=== PATIENT | male | born 1985 | race Caucasian/White ===

== ENCOUNTER 2023-01-10 17:49 | Inpatient (IN) | payer OTHER ==
[2023-01-10 18:29] VITALS: BMI 24.4
[2023-01-10] MEDS ORDERED: hydrOXYzine PAMOATE 25 MG CAPSULE (FP) PO PRN (20:30)
[2023-01-10] MEDS ORDERED: BENZONATATE 200 MG CAPSULE PO PRN (20:30)
[2023-01-10] MEDS ORDERED: AMMONIUM LACTATE 12% LOTION 225 GM BOTTLE TP PRN (20:30)
[2023-01-10] MEDS ORDERED: BENZOCAINE/MENTHOL (CHLORASEPTIC ) LOZENGE MM PRN (20:30)
[2023-01-10] MEDS ORDERED: IBUPROFEN 600 MG TABLET (FP) PO PRN (20:30)
[2023-01-10] MEDS ORDERED: NALOXONE HCL 0.4 MG/ML VIAL IM PRN (20:30)
[2023-01-10] MEDS ORDERED: POLYETHYLENE GLYCOL (HEALTHYLAX) 3350 17 GM PACKET PO PRN (20:30)
[2023-01-10] MEDS ORDERED: LOPERAMIDE HCL 2 MG CAPSULE PO PRN (20:30)
[2023-01-10] MEDS ORDERED: NALOXONE HCL (KLOXXADO) 8 MG SPRAY NS PRN (20:30)
[2023-01-10] MEDS ORDERED: ACETAMINOPHEN 325 MG TABLET (FP) PO PRN (20:30)
[2023-01-10] MEDS ORDERED: MAGNESIUM HYDROX 2400MG/30ML ORAL SUSPENSION 30 ML CUP PO PRN (20:30)
[2023-01-10] MEDS ORDERED: IBUPROFEN 400 MG TABLET (FP) PO PRN (20:30)
[2023-01-10] MEDS ORDERED: guaiFENesin 600 MG TABLET.ER (FP) PO PRN (20:30)
[2023-01-10] MEDS ORDERED: TUBERCULIN PPD 5 TU/0.1ML SYRINGE (IN PATIENT USE ONLY) ID ONE (22:30)
[2023-01-10] MEDS ORDERED: TUBERCULIN PPD 5 TU/0.1ML VIAL ID ONE (22:35)
[2023-01-10] MEDS: THIAMINE HCL 100 MG TABLET (FP) PO SCH (22:40)
[2023-01-10] MEDS: MELATONIN 5 MG TABLETS PO SCH (22:43)
[2023-01-11] MEDS ORDERED: methaDONE HCL 10 MG TABLET PO SCH (07:38)
[2023-01-11] MEDS: methaDONE 40 MG, methaDONE 10 MG PO SCH (08:26)
[2023-01-11] MEDS: NICOTINE 14 MG/24 HOURS TOPICAL PATCH TD SCH (10:32)
[2023-01-11] MEDS: PRENATAL VITAMINS W/ FOLIC ACID TABLET (FP) PO SCH (10:32)
[2023-01-11 11:46] LABS: HEMATOCRIT 40.5 % (35.4-49); HEMOGLOBIN 13.6 GM/dL (11.7-16.9); MCH 29.2 pg (25.7-33.7); MCHC 33.6 g/dl (32.0-35.9); MEAN PLT VOLUME 8.4 fl (7.5-11.1); PLATELET COUNT 209 10^3/uL (134-434); POTASSIUM 4.3 mmol/L (3.5-5.1); RBC 4.66 M/mm3 (4.00-5.60); WHITE BLOOD COUNT 6.2 K/mm3 (4.0-10.0)
[2023-01-11 11:48] LABS: BLOOD UREA NITROGEN 16.4 mg/dL (7-18); CALCIUM 9.2 mg/dL (8.5-10.1)
[2023-01-11 11:49] LABS: ALBUMIN 3.9 g/dl (3.4-5.0)
[2023-01-11 11:52] LABS: CREATININE 0.8 mg/dL (0.55-1.3)
[2023-01-11 11:53] LABS: BILIRUBIN,TOTAL 0.5 mg/dL (0.2-1); TOT PROT 7.2 g/dl (6.4-8.2)
[2023-01-11 12:13] LABS: SYPHILIS W/ RPR CONF NON-REACTIVE (NONREACTIVE)
[2023-01-11] MEDS: GABAPENTIN 300 MG CAPSULE PO SCH ×2 (13:04→21:27)
[2023-01-11] MEDS: THIAMINE HCL 100 MG TABLET (FP) PO SCH (21:27)
[2023-01-11] MEDS: MIRTAZAPINE 15 MG TABLET (FP) PO SCH (21:28)
[2023-01-11] MEDS: MELATONIN 5 MG TABLETS PO SCH (21:28)
[2023-01-12] MEDS: methaDONE 40 MG, methaDONE 10 MG PO SCH (06:42)
[2023-01-12] MEDS: GABAPENTIN 300 MG CAPSULE PO SCH ×3 (06:56→21:39)
[2023-01-12] MEDS: PRENATAL VITAMINS W/ FOLIC ACID TABLET (FP) PO SCH (09:41)
[2023-01-12] MEDS: NICOTINE 14 MG/24 HOURS TOPICAL PATCH TD SCH (09:45)
[2023-01-12 09:50] LABS: URINE APPEARANCE CLEAR; URINE BILIRUBIN NEGATIVE (NEGATIVE); URINE COLOR YELLOW; URINE GLUCOSE (UA) NEGATIVE (NEGATIVE); URINE KETONE NEGATIVE (NEGATIVE); URINE LEUK ESTERASE NEGATIVE (NEGATIVE); URINE NITRITE NEGATIVE (NEGATIVE); URINE PROTEIN NEGATIVE (NEGATIVE); URINE UROBILINOGEN 0.2 mg/dL (0.2-1.0)
[2023-01-12] MEDS: THIAMINE HCL 100 MG TABLET (FP) PO SCH (21:39)
[2023-01-12] MEDS: MELATONIN 5 MG TABLETS PO SCH (21:39)
[2023-01-12] MEDS: MIRTAZAPINE 15 MG TABLET (FP) PO SCH (21:40)
[2023-01-13] MEDS: methaDONE 40 MG, methaDONE 10 MG PO SCH (06:36)
[2023-01-13] MEDS: GABAPENTIN 300 MG CAPSULE PO SCH ×3 (06:36→21:06)
[2023-01-13] MEDS: NICOTINE 14 MG/24 HOURS TOPICAL PATCH TD SCH (10:24)
[2023-01-13] MEDS: PRENATAL VITAMINS W/ FOLIC ACID TABLET (FP) PO SCH (10:25)
[2023-01-13] MEDS: NICOTINE POLACRILEX 2 MG GUM BUC PRN (10:25)
[2023-01-13] MEDS: THIAMINE HCL 100 MG TABLET (FP) PO SCH (21:06)
[2023-01-13] MEDS: MELATONIN 5 MG TABLETS PO SCH (21:06)
[2023-01-13] MEDS: MIRTAZAPINE 15 MG TABLET (FP) PO SCH (21:06)
[2023-01-14] MEDS: methaDONE 40 MG, methaDONE 10 MG PO SCH (06:25)
[2023-01-14] MEDS: GABAPENTIN 300 MG CAPSULE PO SCH ×3 (06:25→21:04)
[2023-01-14] MEDS: NICOTINE 14 MG/24 HOURS TOPICAL PATCH TD SCH (09:35)
[2023-01-14] MEDS: PRENATAL VITAMINS W/ FOLIC ACID TABLET (FP) PO SCH (09:57)
[2023-01-14] MEDS: MIRTAZAPINE 15 MG TABLET (FP) PO SCH (21:05)
[2023-01-14] MEDS: MELATONIN 5 MG TABLETS PO SCH (21:05)
[2023-01-14] MEDS: THIAMINE HCL 100 MG TABLET (FP) PO SCH (21:05)
[2023-01-15] MEDS: GABAPENTIN 300 MG CAPSULE PO SCH ×3 (06:14→21:26)
[2023-01-15] MEDS: methaDONE 40 MG, methaDONE 10 MG PO SCH (06:14)
[2023-01-15] MEDS ORDERED: LORATADINE 10 MG TABLET PO ONE (09:40)
[2023-01-15] MEDS ORDERED: LORATADINE 10 MG TABLET PO PRN (09:41)
[2023-01-15] MEDS: NICOTINE 21 MG/24 HOURS TOPICAL PATCH TD SCH (09:45)
[2023-01-15] MEDS: PRENATAL VITAMINS W/ FOLIC ACID TABLET (FP) PO SCH (09:46)
[2023-01-15] MEDS: THIAMINE HCL 100 MG TABLET (FP) PO SCH (21:26)
[2023-01-15] MEDS: MIRTAZAPINE 15 MG TABLET (FP) PO SCH (21:26)
[2023-01-15] MEDS: SUVOREXANT 10 MG TABLET PO PRN (21:27)
[2023-01-15] MEDS: TOLNAFTATE 1% CREAM 15 GM TUBE TP SCH (21:27)
[2023-01-16] MEDS: GABAPENTIN 300 MG CAPSULE PO SCH ×3 (06:24→21:06)
[2023-01-16] MEDS: methaDONE 40 MG, methaDONE 10 MG PO SCH (06:24)
[2023-01-16] MEDS: NICOTINE 21 MG/24 HOURS TOPICAL PATCH TD SCH (10:28)
[2023-01-16] MEDS: PRENATAL VITAMINS W/ FOLIC ACID TABLET (FP) PO SCH (10:28)
[2023-01-16] MEDS: TOLNAFTATE 1% CREAM 15 GM TUBE TP SCH ×2 (10:30→21:37)
[2023-01-16] MEDS ORDERED: LORATADINE 10 MG TABLET PO PRN (11:39)
[2023-01-16] MEDS: THIAMINE HCL 100 MG TABLET (FP) PO SCH (21:06)
[2023-01-16] MEDS: MIRTAZAPINE 15 MG TABLET (FP) PO SCH (21:06)
[2023-01-16] MEDS: SUVOREXANT 10 MG TABLET PO PRN (21:06)
[2023-01-17] MEDS: GABAPENTIN 300 MG CAPSULE PO SCH ×3 (06:30→21:29)
[2023-01-17] MEDS: methaDONE 40 MG, methaDONE 10 MG PO SCH (06:30)
[2023-01-17] MEDS: NICOTINE 21 MG/24 HOURS TOPICAL PATCH TD SCH (09:41)
[2023-01-17] MEDS: TOLNAFTATE 1% CREAM 15 GM TUBE TP SCH ×2 (09:42→21:30)
[2023-01-17] MEDS: PRENATAL VITAMINS W/ FOLIC ACID TABLET (FP) PO SCH (09:42)
[2023-01-17] MEDS: THIAMINE HCL 100 MG TABLET (FP) PO SCH (21:28)
[2023-01-17] MEDS: SUVOREXANT 10 MG TABLET PO PRN (21:28)
[2023-01-17] MEDS: MIRTAZAPINE 15 MG TABLET (FP) PO SCH (21:29)
[2023-01-18] MEDS: GABAPENTIN 300 MG CAPSULE PO SCH ×3 (06:32→21:34)
[2023-01-18] MEDS: methaDONE 40 MG, methaDONE 10 MG PO SCH (06:32)
[2023-01-18] MEDS: PRENATAL VITAMINS W/ FOLIC ACID TABLET (FP) PO SCH (10:45)
[2023-01-18] MEDS: NICOTINE 21 MG/24 HOURS TOPICAL PATCH TD SCH (10:45)
[2023-01-18] MEDS: TOLNAFTATE 1% CREAM 15 GM TUBE TP SCH ×2 (10:45→21:33)
[2023-01-18] MEDS: MIRTAZAPINE 15 MG TABLET (FP) PO SCH (21:34)
[2023-01-18] MEDS: THIAMINE HCL 100 MG TABLET (FP) PO SCH (21:34)
[2023-01-18] MEDS: SUVOREXANT 10 MG TABLET PO PRN (21:35)
[2023-01-19] MEDS: methaDONE 40 MG, methaDONE 10 MG PO SCH (06:38)
[2023-01-19] MEDS: GABAPENTIN 300 MG CAPSULE PO SCH ×3 (06:38→21:27)
[2023-01-19] MEDS: TOLNAFTATE 1% CREAM 15 GM TUBE TP SCH ×2 (09:38→21:27)
[2023-01-19] MEDS: NICOTINE 21 MG/24 HOURS TOPICAL PATCH TD SCH (09:38)
[2023-01-19] MEDS: PRENATAL VITAMINS W/ FOLIC ACID TABLET (FP) PO SCH (09:38)
[2023-01-19] MEDS: THIAMINE HCL 100 MG TABLET (FP) PO SCH (21:27)
[2023-01-19] MEDS: MIRTAZAPINE 15 MG TABLET (FP) PO SCH (21:27)
[2023-01-19] MEDS: SUVOREXANT 10 MG TABLET PO PRN (21:28)
[2023-01-20] MEDS: methaDONE 40 MG, methaDONE 10 MG PO SCH (06:23)
[2023-01-20] MEDS: GABAPENTIN 300 MG CAPSULE PO SCH ×3 (06:23→21:21)
[2023-01-20] MEDS: PRENATAL VITAMINS W/ FOLIC ACID TABLET (FP) PO SCH (09:57)
[2023-01-20] MEDS: NICOTINE 21 MG/24 HOURS TOPICAL PATCH TD SCH (09:59)
[2023-01-20] MEDS: TOLNAFTATE 1% CREAM 15 GM TUBE TP SCH ×2 (10:00→21:22)
[2023-01-20] MEDS: THIAMINE HCL 100 MG TABLET (FP) PO SCH (21:21)
[2023-01-20] MEDS: MIRTAZAPINE 15 MG TABLET (FP) PO SCH (21:21)
[2023-01-20] MEDS: SUVOREXANT 10 MG TABLET PO PRN (21:22)
[2023-01-21] MEDS: methaDONE 40 MG, methaDONE 10 MG PO SCH (06:40)
[2023-01-21] MEDS: GABAPENTIN 300 MG CAPSULE PO SCH ×3 (06:40→21:22)
[2023-01-21] MEDS: PRENATAL VITAMINS W/ FOLIC ACID TABLET (FP) PO SCH (10:38)
[2023-01-21] MEDS: NICOTINE 21 MG/24 HOURS TOPICAL PATCH TD SCH (10:39)
[2023-01-21] MEDS: TOLNAFTATE 1% CREAM 15 GM TUBE TP SCH ×2 (10:40→21:24)
[2023-01-21] MEDS: MIRTAZAPINE 15 MG TABLET (FP) PO SCH (21:22)
[2023-01-21] MEDS: THIAMINE HCL 100 MG TABLET (FP) PO SCH (21:22)
[2023-01-21] MEDS: SUVOREXANT 10 MG TABLET PO PRN (21:23)
[2023-01-21] MEDS: LIDOCAINE PATCH REMOVAL MC SCH (21:24)
[2023-01-22] MEDS: methaDONE 40 MG, methaDONE 10 MG PO SCH (06:48)
[2023-01-22] MEDS: GABAPENTIN 300 MG CAPSULE PO SCH ×3 (06:48→21:26)
[2023-01-22] MEDS: MAG HYDROX/AL HYDROX/SIMETH 30 ML UNIT-DOSE CUP PO PRN (09:33)
[2023-01-22] MEDS: NICOTINE 21 MG/24 HOURS TOPICAL PATCH TD SCH (09:33)
[2023-01-22] MEDS: LIDOCAINE 5% TOPICAL PATCH TP SCH (09:33)
[2023-01-22] MEDS: TOLNAFTATE 1% CREAM 15 GM TUBE TP SCH ×2 (09:34→21:28)
[2023-01-22] MEDS: MAGNESIUM HYDROX 2400MG/30ML ORAL SUSPENSION 30 ML CUP PO SCH (09:34)
[2023-01-22] MEDS: PRENATAL VITAMINS W/ FOLIC ACID TABLET (FP) PO SCH (09:34)
[2023-01-22] MEDS: BACLOFEN 10 MG TABLET (FP) PO PRN (14:29)
[2023-01-22] MEDS: THIAMINE HCL 100 MG TABLET (FP) PO SCH (21:26)
[2023-01-22] MEDS: MIRTAZAPINE 15 MG TABLET (FP) PO SCH (21:26)
[2023-01-22] MEDS: SENNOSIDES 8.6MG TABLET (FP) PO SCH (21:27)
[2023-01-22] MEDS: SUVOREXANT 10 MG TABLET PO PRN (21:27)
[2023-01-22] MEDS: LIDOCAINE PATCH REMOVAL MC SCH (21:28)
[2023-01-23] MEDS: methaDONE 40 MG, methaDONE 10 MG PO SCH (06:28)
[2023-01-23] MEDS: GABAPENTIN 300 MG CAPSULE PO SCH ×3 (06:28→21:08)
[2023-01-23] MEDS: NICOTINE POLACRILEX 2 MG GUM BUC PRN (06:31)
[2023-01-23] MEDS: PRENATAL VITAMINS W/ FOLIC ACID TABLET (FP) PO SCH (09:24)
[2023-01-23] MEDS: LIDOCAINE 5% TOPICAL PATCH TP SCH (09:25)
[2023-01-23] MEDS: MAGNESIUM HYDROX 2400MG/30ML ORAL SUSPENSION 30 ML CUP PO SCH (09:26)
[2023-01-23] MEDS: NICOTINE 21 MG/24 HOURS TOPICAL PATCH TD SCH (09:26)
[2023-01-23] MEDS: TOLNAFTATE 1% CREAM 15 GM TUBE TP SCH ×2 (09:26→21:09)
[2023-01-23] MEDS: BACLOFEN 10 MG TABLET (FP) PO PRN (16:44)
[2023-01-23] MEDS: THIAMINE HCL 100 MG TABLET (FP) PO SCH (21:07)
[2023-01-23] MEDS: SUVOREXANT 10 MG TABLET PO PRN (21:08)
[2023-01-23] MEDS: SENNOSIDES 8.6MG TABLET (FP) PO SCH (21:08)
[2023-01-23] MEDS: MIRTAZAPINE 15 MG TABLET (FP) PO SCH (21:08)
[2023-01-23] MEDS: LIDOCAINE PATCH REMOVAL MC SCH (21:09)
[2023-01-24] MEDS: GABAPENTIN 300 MG CAPSULE PO SCH ×3 (06:27→21:06)
[2023-01-24] MEDS: methaDONE 40 MG, methaDONE 10 MG PO SCH (06:27)
[2023-01-24] MEDS: BACLOFEN 10 MG TABLET (FP) PO PRN (09:36)
[2023-01-24] MEDS: NICOTINE 21 MG/24 HOURS TOPICAL PATCH TD SCH (09:36)
[2023-01-24] MEDS: LIDOCAINE 5% TOPICAL PATCH TP SCH (10:44)
[2023-01-24] MEDS: PRENATAL VITAMINS W/ FOLIC ACID TABLET (FP) PO SCH (10:45)
[2023-01-24] MEDS: MAGNESIUM HYDROX 2400MG/30ML ORAL SUSPENSION 30 ML CUP PO SCH ×2 (10:45→13:55)
[2023-01-24] MEDS: TOLNAFTATE 1% CREAM 15 GM TUBE TP SCH ×2 (13:55→21:07)
[2023-01-24] MEDS: THIAMINE HCL 100 MG TABLET (FP) PO SCH (21:05)
[2023-01-24] MEDS: SUVOREXANT 10 MG TABLET PO PRN (21:06)
[2023-01-24] MEDS: MIRTAZAPINE 15 MG TABLET (FP) PO SCH (21:06)
[2023-01-24] MEDS: LIDOCAINE PATCH REMOVAL MC SCH (21:07)
[2023-01-24] MEDS: SENNOSIDES 8.6MG TABLET (FP) PO SCH (21:07)
[2023-01-25] MEDS ORDERED: methaDONE HCL 40 MG DISPERSABLE TABLET PO SCH (06:00)
[2023-01-25] MEDS: methaDONE 40 MG, methaDONE 10 MG PO SCH (06:32)
[2023-01-25] MEDS: BACLOFEN 10 MG TABLET (FP) PO PRN (06:36)
[2023-01-25] MEDS: GABAPENTIN 300 MG CAPSULE PO SCH ×2 (09:26→21:02)
[2023-01-25] MEDS: LIDOCAINE 5% TOPICAL PATCH TP SCH (09:26)
[2023-01-25] MEDS: NICOTINE 21 MG/24 HOURS TOPICAL PATCH TD SCH (09:26)
[2023-01-25] MEDS: MAGNESIUM HYDROX 2400MG/30ML ORAL SUSPENSION 30 ML CUP PO SCH (09:26)
[2023-01-25] MEDS: PRENATAL VITAMINS W/ FOLIC ACID TABLET (FP) PO SCH (09:26)
[2023-01-25] MEDS: TOLNAFTATE 1% CREAM 15 GM TUBE TP SCH ×2 (09:27→21:03)
[2023-01-25] MEDS: NICOTINE 10 MG CARTRIDGE (INHALER) IH PRN (11:25)
[2023-01-25] MEDS: COLLOIDAL OATMEAL 1 BAR EACH TP PRN (12:14)
[2023-01-25] MEDS: SUVOREXANT 10 MG TABLET PO PRN (21:01)
[2023-01-25] MEDS: MIRTAZAPINE 15 MG TABLET (FP) PO SCH (21:02)
[2023-01-25] MEDS: THIAMINE HCL 100 MG TABLET (FP) PO SCH (21:02)
[2023-01-25] MEDS: SENNOSIDES 8.6MG TABLET (FP) PO SCH (21:02)
[2023-01-25] MEDS: LIDOCAINE PATCH REMOVAL MC SCH (21:55)
[2023-01-26] MEDS: methaDONE 40 MG, methaDONE 10 MG PO SCH (06:28)
[2023-01-26] MEDS: NICOTINE 10 MG CARTRIDGE (INHALER) IH PRN ×3 (06:29→21:12)
[2023-01-26] MEDS: PRENATAL VITAMINS W/ FOLIC ACID TABLET (FP) PO SCH (10:02)
[2023-01-26] MEDS: GABAPENTIN 300 MG CAPSULE PO SCH ×2 (10:03→21:11)
[2023-01-26] MEDS: MAGNESIUM HYDROX 2400MG/30ML ORAL SUSPENSION 30 ML CUP PO SCH (10:05)
[2023-01-26] MEDS: LIDOCAINE 5% TOPICAL PATCH TP SCH (10:05)
[2023-01-26] MEDS: TOLNAFTATE 1% CREAM 15 GM TUBE TP SCH ×2 (10:06→21:12)
[2023-01-26] MEDS: NICOTINE 21 MG/24 HOURS TOPICAL PATCH TD SCH (10:06)
[2023-01-26] MEDS: SUVOREXANT 10 MG TABLET PO PRN (21:10)
[2023-01-26] MEDS: SENNOSIDES 8.6MG TABLET (FP) PO SCH (21:11)
[2023-01-26] MEDS: MIRTAZAPINE 15 MG TABLET (FP) PO SCH (21:11)
[2023-01-26] MEDS: THIAMINE HCL 100 MG TABLET (FP) PO SCH (21:12)
[2023-01-26] MEDS: LIDOCAINE PATCH REMOVAL MC SCH (21:12)
[2023-01-27] MEDS: methaDONE 40 MG, methaDONE 10 MG PO SCH (06:01)
[2023-01-27] MEDS: LIDOCAINE 5% TOPICAL PATCH TP SCH (09:27)
[2023-01-27] MEDS: GABAPENTIN 300 MG CAPSULE PO SCH ×2 (09:28→21:14)
[2023-01-27] MEDS: MAGNESIUM HYDROX 2400MG/30ML ORAL SUSPENSION 30 ML CUP PO SCH (09:28)
[2023-01-27] MEDS: PRENATAL VITAMINS W/ FOLIC ACID TABLET (FP) PO SCH (09:29)
[2023-01-27] MEDS: NICOTINE 21 MG/24 HOURS TOPICAL PATCH TD SCH (09:29)
[2023-01-27] MEDS: TOLNAFTATE 1% CREAM 15 GM TUBE TP SCH ×2 (09:29→21:15)
[2023-01-27] MEDS: NICOTINE 10 MG CARTRIDGE (INHALER) IH PRN ×2 (09:30→21:15)
[2023-01-27] MEDS: SUVOREXANT 10 MG TABLET PO PRN (21:14)
[2023-01-27] MEDS: SENNOSIDES 8.6MG TABLET (FP) PO SCH (21:14)
[2023-01-27] MEDS: MIRTAZAPINE 15 MG TABLET (FP) PO SCH (21:14)
[2023-01-27] MEDS: THIAMINE HCL 100 MG TABLET (FP) PO SCH (21:15)
[2023-01-27] MEDS: LIDOCAINE PATCH REMOVAL MC SCH (21:15)
[2023-01-27] MEDS: BACLOFEN 10 MG TABLET (FP) PO PRN (21:16)
[2023-01-28] MEDS: methaDONE 40 MG, methaDONE 10 MG PO SCH (06:05)
[2023-01-28] MEDS: PRENATAL VITAMINS W/ FOLIC ACID TABLET (FP) PO SCH (10:18)
[2023-01-28] MEDS: GABAPENTIN 300 MG CAPSULE PO SCH ×3 (10:18→21:09)
[2023-01-28] MEDS: LIDOCAINE 5% TOPICAL PATCH TP SCH (10:18)
[2023-01-28] MEDS: MAGNESIUM HYDROX 2400MG/30ML ORAL SUSPENSION 30 ML CUP PO SCH (10:18)
[2023-01-28] MEDS: NICOTINE 21 MG/24 HOURS TOPICAL PATCH TD SCH (10:19)
[2023-01-28] MEDS: TOLNAFTATE 1% CREAM 15 GM TUBE TP SCH ×2 (10:19→21:10)
[2023-01-28] MEDS ORDERED: GABAPENTIN 300 MG CAPSULE PO SCH (13:15)
[2023-01-28] MEDS: NICOTINE 10 MG CARTRIDGE (INHALER) IH PRN ×3 (14:19→21:10)
[2023-01-28] MEDS: BACLOFEN 10 MG TABLET (FP) PO PRN (14:19)
[2023-01-28] MEDS: SUVOREXANT 10 MG TABLET PO PRN (21:09)
[2023-01-28] MEDS: SENNOSIDES 8.6MG TABLET (FP) PO SCH (21:10)
[2023-01-28] MEDS: THIAMINE HCL 100 MG TABLET (FP) PO SCH (21:10)
[2023-01-28] MEDS: MIRTAZAPINE 15 MG TABLET (FP) PO SCH (21:10)
[2023-01-28] MEDS: LIDOCAINE PATCH REMOVAL MC SCH (21:55)
[2023-01-29] MEDS: GABAPENTIN 300 MG CAPSULE PO SCH ×3 (06:16→21:04)
[2023-01-29] MEDS: methaDONE 40 MG, methaDONE 10 MG PO SCH (06:16)
[2023-01-29] MEDS: MAGNESIUM HYDROX 2400MG/30ML ORAL SUSPENSION 30 ML CUP PO SCH (09:33)
[2023-01-29] MEDS: PRENATAL VITAMINS W/ FOLIC ACID TABLET (FP) PO SCH (09:35)
[2023-01-29] MEDS: TOLNAFTATE 1% CREAM 15 GM TUBE TP SCH ×2 (09:35→21:05)
[2023-01-29] MEDS: NICOTINE 21 MG/24 HOURS TOPICAL PATCH TD SCH (09:35)
[2023-01-29] MEDS: LIDOCAINE 5% TOPICAL PATCH TP SCH (09:35)
[2023-01-29] MEDS: COLLOIDAL OATMEAL 1 BAR EACH TP PRN (09:36)
[2023-01-29] MEDS: NICOTINE 10 MG CARTRIDGE (INHALER) IH PRN ×2 (10:20→14:00)
[2023-01-29] MEDS: BACLOFEN 10 MG TABLET (FP) PO PRN (14:00)
[2023-01-29] MEDS: THIAMINE HCL 100 MG TABLET (FP) PO SCH (21:03)
[2023-01-29] MEDS: SENNOSIDES 8.6MG TABLET (FP) PO SCH (21:04)
[2023-01-29] MEDS: MIRTAZAPINE 15 MG TABLET (FP) PO SCH (21:04)
[2023-01-29] MEDS: SUVOREXANT 10 MG TABLET PO PRN (21:05)
[2023-01-29] MEDS: LIDOCAINE PATCH REMOVAL MC SCH (21:05)
[2023-01-30] MEDS: GABAPENTIN 300 MG CAPSULE PO SCH ×3 (06:14→21:28)
[2023-01-30] MEDS: methaDONE 40 MG, methaDONE 10 MG PO SCH (06:15)
[2023-01-30] MEDS: NICOTINE 10 MG CARTRIDGE (INHALER) IH PRN ×3 (06:16→21:28)
[2023-01-30] MEDS: LIDOCAINE 5% TOPICAL PATCH TP SCH (10:25)
[2023-01-30] MEDS: PRENATAL VITAMINS W/ FOLIC ACID TABLET (FP) PO SCH (10:26)
[2023-01-30] MEDS: NICOTINE 21 MG/24 HOURS TOPICAL PATCH TD SCH (10:26)
[2023-01-30] MEDS: TOLNAFTATE 1% CREAM 15 GM TUBE TP SCH ×2 (10:26→21:30)
[2023-01-30] MEDS: MAG HYDROX/AL HYDROX/SIMETH 30 ML UNIT-DOSE CUP PO PRN (10:26)
[2023-01-30] MEDS: MAGNESIUM HYDROX 2400MG/30ML ORAL SUSPENSION 30 ML CUP PO SCH (10:37)
[2023-01-30] MEDS: MIRTAZAPINE 15 MG TABLET (FP) PO SCH (21:28)
[2023-01-30] MEDS: THIAMINE HCL 100 MG TABLET (FP) PO SCH (21:28)
[2023-01-30] MEDS: SENNOSIDES 8.6MG TABLET (FP) PO SCH (21:28)
[2023-01-30] MEDS: SUVOREXANT 10 MG TABLET PO PRN (21:29)
[2023-01-30] MEDS: LIDOCAINE PATCH REMOVAL MC SCH (21:30)
[2023-01-31] MEDS: GABAPENTIN 300 MG CAPSULE PO SCH ×3 (06:26→21:02)
[2023-01-31] MEDS: methaDONE 40 MG, methaDONE 10 MG PO SCH (06:26)
[2023-01-31] MEDS: LIDOCAINE 5% TOPICAL PATCH TP SCH (09:41)
[2023-01-31] MEDS: MAGNESIUM HYDROX 2400MG/30ML ORAL SUSPENSION 30 ML CUP PO SCH (09:41)
[2023-01-31] MEDS: PRENATAL VITAMINS W/ FOLIC ACID TABLET (FP) PO SCH (09:42)
[2023-01-31] MEDS: NICOTINE 21 MG/24 HOURS TOPICAL PATCH TD SCH (09:42)
[2023-01-31] MEDS: TOLNAFTATE 1% CREAM 15 GM TUBE TP SCH ×2 (09:42→21:03)
[2023-01-31] MEDS: NICOTINE 10 MG CARTRIDGE (INHALER) IH PRN (09:42)
[2023-01-31] MEDS: BACLOFEN 10 MG TABLET (FP) PO PRN (18:29)
[2023-01-31] MEDS: MIRTAZAPINE 15 MG TABLET (FP) PO SCH (21:02)
[2023-01-31] MEDS: SENNOSIDES 8.6MG TABLET (FP) PO SCH (21:02)
[2023-01-31] MEDS: SUVOREXANT 10 MG TABLET PO PRN (21:02)
[2023-01-31] MEDS: THIAMINE HCL 100 MG TABLET (FP) PO SCH (21:02)
[2023-01-31] MEDS: LIDOCAINE PATCH REMOVAL MC SCH (21:03)
[2023-02-01] MEDS: GABAPENTIN 300 MG CAPSULE PO SCH ×3 (06:23→21:07)
[2023-02-01] MEDS: methaDONE 40 MG, methaDONE 10 MG PO SCH (06:23)
[2023-02-01] MEDS: MAGNESIUM HYDROX 2400MG/30ML ORAL SUSPENSION 30 ML CUP PO SCH (10:36)
[2023-02-01] MEDS: LIDOCAINE 5% TOPICAL PATCH TP SCH (10:36)
[2023-02-01] MEDS: PRENATAL VITAMINS W/ FOLIC ACID TABLET (FP) PO SCH (10:36)
[2023-02-01] MEDS: NICOTINE 10 MG CARTRIDGE (INHALER) IH PRN ×2 (10:37→21:08)
[2023-02-01] MEDS: NICOTINE 21 MG/24 HOURS TOPICAL PATCH TD SCH (10:37)
[2023-02-01] MEDS: TOLNAFTATE 1% CREAM 15 GM TUBE TP SCH ×2 (10:38→21:08)
[2023-02-01] MEDS: COLLOIDAL OATMEAL 1 BAR EACH TP PRN (10:55)
[2023-02-01] MEDS: BACLOFEN 10 MG TABLET (FP) PO PRN (17:47)
[2023-02-01] MEDS: MIRTAZAPINE 15 MG TABLET (FP) PO SCH (21:07)
[2023-02-01] MEDS: THIAMINE HCL 100 MG TABLET (FP) PO SCH (21:07)
[2023-02-01] MEDS: SUVOREXANT 10 MG TABLET PO PRN (21:07)
[2023-02-01] MEDS: LIDOCAINE PATCH REMOVAL MC SCH (21:08)
[2023-02-01] MEDS: SENNOSIDES 8.6MG TABLET (FP) PO SCH (21:08)
[2023-02-02] MEDS: GABAPENTIN 300 MG CAPSULE PO SCH ×3 (06:32→21:36)
[2023-02-02] MEDS: methaDONE 40 MG, methaDONE 10 MG PO SCH (09:39)
[2023-02-02] MEDS: NICOTINE 10 MG CARTRIDGE (INHALER) IH PRN ×2 (12:00→21:38)
[2023-02-02] MEDS: NICOTINE 21 MG/24 HOURS TOPICAL PATCH TD SCH (12:00)
[2023-02-02] MEDS: MAGNESIUM HYDROX 2400MG/30ML ORAL SUSPENSION 30 ML CUP PO SCH (12:00)
[2023-02-02] MEDS: PRENATAL VITAMINS W/ FOLIC ACID TABLET (FP) PO SCH (12:01)
[2023-02-02] MEDS: TOLNAFTATE 1% CREAM 15 GM TUBE TP SCH ×2 (12:01→21:38)
[2023-02-02] MEDS: LIDOCAINE 5% TOPICAL PATCH TP SCH (12:01)
[2023-02-02] MEDS: BACLOFEN 10 MG TABLET (FP) PO PRN (12:01)
[2023-02-02] MEDS: MIRTAZAPINE 15 MG TABLET (FP) PO SCH (21:36)
[2023-02-02] MEDS: THIAMINE HCL 100 MG TABLET (FP) PO SCH (21:36)
[2023-02-02] MEDS: SENNOSIDES 8.6MG TABLET (FP) PO SCH (21:37)
[2023-02-02] MEDS: SUVOREXANT 10 MG TABLET PO PRN (21:37)
[2023-02-02] MEDS: LIDOCAINE PATCH REMOVAL MC SCH (21:38)
[2023-02-03] MEDS: GABAPENTIN 300 MG CAPSULE PO SCH ×3 (05:52→21:04)
[2023-02-03] MEDS: NICOTINE 10 MG CARTRIDGE (INHALER) IH PRN (05:53)
[2023-02-03] MEDS: NICOTINE 21 MG/24 HOURS TOPICAL PATCH TD SCH (10:00)
[2023-02-03] MEDS: methaDONE 40 MG, methaDONE 10 MG PO SCH (10:17)
[2023-02-03] MEDS: MAGNESIUM HYDROX 2400MG/30ML ORAL SUSPENSION 30 ML CUP PO SCH (11:49)
[2023-02-03] MEDS: LIDOCAINE 5% TOPICAL PATCH TP SCH (11:49)
[2023-02-03] MEDS: TOLNAFTATE 1% CREAM 15 GM TUBE TP SCH ×2 (11:50→21:05)
[2023-02-03] MEDS: PRENATAL VITAMINS W/ FOLIC ACID TABLET (FP) PO SCH (11:50)
[2023-02-03] MEDS: SUVOREXANT 10 MG TABLET PO PRN (21:04)
[2023-02-03] MEDS: THIAMINE HCL 100 MG TABLET (FP) PO SCH (21:04)
[2023-02-03] MEDS: SENNOSIDES 8.6MG TABLET (FP) PO SCH (21:04)
[2023-02-03] MEDS: MIRTAZAPINE 15 MG TABLET (FP) PO SCH (21:04)
[2023-02-03] MEDS: LIDOCAINE PATCH REMOVAL MC SCH (21:05)
[2023-02-04] MEDS: GABAPENTIN 300 MG CAPSULE PO SCH ×3 (06:05→21:53)
[2023-02-04] MEDS: NICOTINE 10 MG CARTRIDGE (INHALER) IH PRN (06:05)
[2023-02-04] MEDS: methaDONE 40 MG, methaDONE 10 MG PO SCH (09:23)
[2023-02-04] MEDS: NICOTINE 21 MG/24 HOURS TOPICAL PATCH TD SCH (09:24)
[2023-02-04] MEDS: MAGNESIUM HYDROX 2400MG/30ML ORAL SUSPENSION 30 ML CUP PO SCH (09:24)
[2023-02-04] MEDS: LIDOCAINE 5% TOPICAL PATCH TP SCH (09:24)
[2023-02-04] MEDS: TOLNAFTATE 1% CREAM 15 GM TUBE TP SCH ×2 (09:24→21:54)
[2023-02-04] MEDS: PRENATAL VITAMINS W/ FOLIC ACID TABLET (FP) PO SCH (09:24)
[2023-02-04] MEDS: SENNOSIDES 8.6MG TABLET (FP) PO SCH (21:53)
[2023-02-04] MEDS: MIRTAZAPINE 15 MG TABLET (FP) PO SCH (21:53)
[2023-02-04] MEDS: LIDOCAINE PATCH REMOVAL MC SCH (21:54)
[2023-02-04] MEDS: THIAMINE HCL 100 MG TABLET (FP) PO SCH (21:54)
[2023-02-04] MEDS: SUVOREXANT 10 MG TABLET PO PRN (21:55)
[2023-02-05] MEDS: GABAPENTIN 300 MG CAPSULE PO SCH ×3 (07:35→21:36)
[2023-02-05] MEDS: methaDONE 40 MG, methaDONE 10 MG PO SCH (10:32)
[2023-02-05] MEDS: LIDOCAINE 5% TOPICAL PATCH TP SCH (10:32)
[2023-02-05] MEDS: PRENATAL VITAMINS W/ FOLIC ACID TABLET (FP) PO SCH (10:32)
[2023-02-05] MEDS: NICOTINE 21 MG/24 HOURS TOPICAL PATCH TD SCH (10:32)
[2023-02-05] MEDS: MAGNESIUM HYDROX 2400MG/30ML ORAL SUSPENSION 30 ML CUP PO SCH (10:32)
[2023-02-05] MEDS: TOLNAFTATE 1% CREAM 15 GM TUBE TP SCH ×2 (10:32→21:38)
[2023-02-05] MEDS: MIRTAZAPINE 15 MG TABLET (FP) PO SCH (21:36)
[2023-02-05] MEDS: SUVOREXANT 10 MG TABLET PO PRN (21:37)
[2023-02-05] MEDS: SENNOSIDES 8.6MG TABLET (FP) PO SCH (21:37)
[2023-02-05] MEDS: THIAMINE HCL 100 MG TABLET (FP) PO SCH (21:37)
[2023-02-05] MEDS: LIDOCAINE PATCH REMOVAL MC SCH (21:38)
[2023-02-06] MEDS: GABAPENTIN 300 MG CAPSULE PO SCH ×3 (07:40→21:04)
[2023-02-06 07:47] VITALS: RESP 18; TEMP 97.1
[2023-02-06] MEDS: methaDONE 40 MG, methaDONE 10 MG PO SCH (09:43)
[2023-02-06] MEDS: MAGNESIUM HYDROX 2400MG/30ML ORAL SUSPENSION 30 ML CUP PO SCH (09:44)
[2023-02-06] MEDS: LIDOCAINE 5% TOPICAL PATCH TP SCH (09:44)
[2023-02-06] MEDS: TOLNAFTATE 1% CREAM 15 GM TUBE TP SCH ×2 (09:45→21:05)
[2023-02-06] MEDS: PRENATAL VITAMINS W/ FOLIC ACID TABLET (FP) PO SCH (09:45)
[2023-02-06] MEDS: NICOTINE 21 MG/24 HOURS TOPICAL PATCH TD SCH (09:45)
[2023-02-06] MEDS: BACLOFEN 10 MG TABLET (FP) PO PRN (14:00)
[2023-02-06] MEDS: COLLOIDAL OATMEAL 1 BAR EACH TP PRN (14:00)
[2023-02-06] MEDS: SUVOREXANT 10 MG TABLET PO PRN (21:04)
[2023-02-06] MEDS: MIRTAZAPINE 15 MG TABLET (FP) PO SCH (21:04)
[2023-02-06] MEDS: SENNOSIDES 8.6MG TABLET (FP) PO SCH (21:04)
[2023-02-06] MEDS: THIAMINE HCL 100 MG TABLET (FP) PO SCH (21:04)
[2023-02-06] MEDS: LIDOCAINE PATCH REMOVAL MC SCH (21:05)
[2023-02-07 09:06] VITALS: BP 123/74; PULSE 91
[2023-02-07] MEDS: methaDONE 40 MG, methaDONE 10 MG PO SCH (09:08)
[2023-02-07] MEDS: LIDOCAINE 5% TOPICAL PATCH TP SCH (09:11)
[2023-02-07] MEDS: MAGNESIUM HYDROX 2400MG/30ML ORAL SUSPENSION 30 ML CUP PO SCH (09:11)
[2023-02-07] MEDS: PRENATAL VITAMINS W/ FOLIC ACID TABLET (FP) PO SCH (09:11)
[2023-02-07] MEDS: NICOTINE 21 MG/24 HOURS TOPICAL PATCH TD SCH (09:11)
[2023-02-07] MEDS: TOLNAFTATE 1% CREAM 15 GM TUBE TP SCH (09:11)
== END 2023-02-07 09:33 | disposition home or self-care (01) | DRG 772 ==
LOC: YASAS 17:49 → Y3W 22:19 → Y3N 01-23 11:21 → Y3W 01-23 11:29
PROVIDERS: ADMIT Allergy & Immunology; ATTEND Psychiatry & Neurology Pain Medicine
PROC: HZ42ZZZ Group Counseling for Substance Abuse Treatment, Cognitive-Behavioral (ICD-10-PCS; principal; 2023-01-10)
DX: F10.20 Alcohol dependence, uncomplicated (principal); F13.20 Sedative, hypnotic or anxiolytic dependence, uncomplicated; F11.20 Opioid dependence, uncomplicated; F17.210 Nicotine dependence, cigarettes, uncomplicated; F41.9 Anxiety disorder, unspecified; F32.A Depression, unspecified; F43.10 Post-traumatic stress disorder, unspecified; J30.9 Allergic rhinitis, unspecified; K59.00 Constipation, unspecified; M54.16 Radiculopathy, lumbar region; B35.3 Tinea pedis; R74.01 Elevation of levels of liver transaminase levels
CPT/HCPCS: 36415; 80053; 81003; 82962; 85027; 86780; 86803; 87522; 87635; J0475

== ENCOUNTER 2023-11-05 19:32 | Inpatient (IN) | payer OTHER ==
[2023-11-05 19:59] VITALS: BMI 21.9
[2023-11-05] MEDS ORDERED: NICOTINE POLACRILEX 2 MG GUM BUC PRN (20:51)
[2023-11-05] MEDS ORDERED: BENZOCAINE/MENTHOL (CHLORASEPTIC ) LOZENGE MM PRN (20:51)
[2023-11-05] MEDS ORDERED: guaiFENesin 600 MG TABLET.ER (FP) PO PRN (20:51)
[2023-11-05] MEDS ORDERED: MAGNESIUM HYDROX 2400MG/30ML ORAL SUSPENSION 30 ML CUP PO PRN (20:51)
[2023-11-05] MEDS ORDERED: BENZONATATE 200 MG CAPSULE PO PRN (20:51)
[2023-11-05] MEDS ORDERED: BISMUTH SUBSALICYLATE 524 MG/30 ML PO PRN (20:51)
[2023-11-05] MEDS ORDERED: ONDANSETRON *ODT* 4 MG TABLET SL PRN (20:51)
[2023-11-05] MEDS ORDERED: NALOXONE HCL 0.4 MG/ML VIAL IM PRN (20:51)
[2023-11-05] MEDS ORDERED: P-EPHED 60MG/TRIPROLIDI 2.5MG TABLET PO PRN (20:51)
[2023-11-05] MEDS ORDERED: LOPERAMIDE HCL 2 MG CAPSULE PO PRN (20:51)
[2023-11-05] MEDS ORDERED: ACETAMINOPHEN 325 MG TABLET (FP) PO PRN (20:51)
[2023-11-05] MEDS ORDERED: POLYETHYLENE GLYCOL (HEALTHYLAX) 3350 17 GM PACKET PO PRN (20:51)
[2023-11-05] MEDS ORDERED: NALOXONE HCL (KLOXXADO) 8 MG SPRAY NS PRN (20:51)
[2023-11-05] MEDS ORDERED: MAG HYDROX/AL HYDROX/SIMETH 30 ML UNIT-DOSE CUP PO PRN (20:51)
[2023-11-05] MEDS ORDERED: DICYCLOMINE HCL 10 MG CAPSULE PO PRN (20:51)
[2023-11-05] MEDS ORDERED: IBUPROFEN 400 MG TABLET (FP) PO PRN (20:51)
[2023-11-05] MEDS: MELATONIN 5 MG TABLETS PO SCH (22:19)
[2023-11-05] MEDS: THIAMINE HCL 100 MG TABLET (FP) PO SCH (22:19)
[2023-11-05] MEDS: hydrOXYzine PAMOATE 25 MG CAPSULE (FP) PO PRN (22:21)
[2023-11-05] MEDS: METHOCARBAMOL 500 MG TABLET PO PRN (22:21)
[2023-11-05] MEDS: IBUPROFEN 600 MG TABLET (FP) PO PRN (22:23)
[2023-11-06 08:52] LABS: HEMATOCRIT 32.8 % (35.4-49); HEMOGLOBIN 10.7 GM/dL (11.7-16.9); MCH 28.8 pg (25.7-33.7); MCHC 32.8 g/dl (32.0-35.9); MEAN CELL VOLUME 87.9 fl (80-96); MEAN PLT VOLUME 8.6 fl (7.5-11.1); PLATELET COUNT 219 10^3/uL (134-434); RBC 3.73 M/mm3 (4.00-5.60); RDW 13.5 % (11.9-15.9); WHITE BLOOD COUNT 4.8 K/mm3 (4.0-10.0)
[2023-11-06 09:09] LABS: CHLORIDE 105 mmol/L (98-107); POTASSIUM 3.9 mmol/L (3.5-5.1); SODIUM 140 mmol/L (136-145)
[2023-11-06 09:16] LABS: ALBUMIN 2.8 g/dl (3.4-5.0); BLOOD UREA NITROGEN 23.5 mg/dL (7-18); CREATININE 0.7 mg/dL (0.55-1.3); GLUCOSE,RANDOM 84 mg/dL (74-106); SGPT/ALT 34 U/L (13-61)
[2023-11-06 09:18] LABS: BILIRUBIN,TOTAL 0.2 mg/dL (0.2-1); TOT PROT 6.2 g/dl (6.4-8.2)
[2023-11-06 09:19] LABS: ALK PHOS 61 U/L (45-117); ANION GAP 6 mmol/L (4-13); CALCIUM 8.7 mg/dL (8.5-10.1); CO2 29 mmol/L (21-32); SGOT/AST 30 U/L (15-37)
[2023-11-06] MEDS: diazePAM 5 MG TABLET PO PRN ×2 (10:41→20:25)
[2023-11-06] MEDS: BUPRENORPHINE HCL 150 MCG, BUPRENORPHINE HCL 75 MCG BC ONE (10:41)
[2023-11-06] MEDS: PRENATAL VITAMINS W/ FOLIC ACID TABLET (FP) PO SCH (10:42)
[2023-11-06] MEDS: cloNIDine HCL 0.1 MG TABLET PO ONE (10:45)
[2023-11-06] MEDS: CEPHALEXIN MONOHYDRATE 500 MG CAPSULE (UD) PO SCH (11:57)
[2023-11-06] MEDS: MINERAL OIL/PETROLAT/WATER TOPICAL CREAM 113 GM JAR TP SCH (11:57)
[2023-11-06] MEDS: BUPRENORPHINE HCL 150 MCG, BUPRENORPHINE HCL 75 MCG BC PRN (15:06)
[2023-11-06] MEDS: diazePAM 5 MG TABLET PO SCH (16:54)
[2023-11-06] MEDS: cloNIDine HCL 0.1 MG TABLET PO PRN (16:54)
[2023-11-06 17:57] VITALS: RESP 18
[2023-11-06 22:09] VITALS: BP 113/63; PULSE 63; TEMP 97.7
[2023-11-07] MEDS ORDERED: BUPRENORPHINE HCL 150 MCG, BUPRENORPHINE HCL 75 MCG BC PRN
[2023-11-07] MEDS ORDERED: BUPRENORPHINE HCL 150 MCG, BUPRENORPHINE HCL 75 MCG BC SCH (06:00)
[2023-11-07] MEDS ORDERED: diazePAM 5 MG TABLET PO SCH (06:00)
[2023-11-08] MEDS ORDERED: BUPRENORPHINE HCL 450 MCG FILM BC PRN
[2023-11-08] MEDS ORDERED: diazePAM 5 MG TABLET PO SCH (06:00)
[2023-11-08] MEDS ORDERED: BUPRENORPHINE HCL 450 MCG FILM BC SCH (06:00)
[2023-11-09] MEDS ORDERED: BUPRENORPHINE/NALOXONE 4 MG/1 MG FILM PACKET SL SCH (06:00)
[2023-11-09] MEDS ORDERED: diazePAM 5 MG TABLET PO ONE (06:00)
[2023-11-10] MEDS ORDERED: BUPRENORPHINE/NALOXONE 8 MG/2 MG FILM PACKET SL ONE (06:00)
== END 2023-11-07 01:00 | disposition left against medical advice (07) | DRG 770 ==
LOC: YASAS 19:32 → Y6N 21:02
PROVIDERS: ADMIT Allergy & Immunology; ATTEND Surgery
PROC: HZ2ZZZZ Detoxification Services for Substance Abuse Treatment (ICD-10-PCS; principal; 2023-11-05)
DX: F10.230 Alcohol dependence with withdrawal, uncomplicated (principal); F13.230 Sedative, hypnotic or anxiolytic dependence with withdrawal, uncomplicated; F11.20 Opioid dependence, uncomplicated; F12.20 Cannabis dependence, uncomplicated; F41.9 Anxiety disorder, unspecified; F32.A Depression, unspecified; L02.413 Cutaneous abscess of right upper limb
CPT/HCPCS: 36415; 80053; 80307; 85027; 86780; 93005; 93010